=== PATIENT | female | born 2000 | race Caucasian/White ===

== ENCOUNTER → 2023-12-26 | Outpatient (CLI) | payer OTHER | LOC: VAS 10:17 | DX: M79.662 Pain in left lower leg (principal) ==

== ENCOUNTER → 2024-07-11 | Outpatient (CLI) | payer OTHER ==
[2024-07-11 12:20] LABS: HEMATOCRIT 40.6 % (37.0-47.0); HEMOGLOBIN 13.2 g/dL (12.5-16.0); MEAN PLATELET VOLUME 9.6 fl (7.4-10.4); RED BLOOD COUNT 4.24 M/mm3 (4.10-5.30); RED CELL DISTRIBUTION WIDTH 11.9 % (11.5-14.5); WHITE BLOOD COUNT 8.9 K/mm3 (4.8-10.8)
== END ==
LOC: LAB 12:10
PROVIDERS: Family Medicine
DX: Z13.228 Encounter for screening for other metabolic disorders (principal); E28.2 Polycystic ovarian syndrome